=== PATIENT | male | born 1950 | race Caucasian/White ===

== ENCOUNTER 2017-12-01 15:50 | Inpatient (IN) ==
[2017-12-01 16:38] LABS: Basophils # 0.1 K/mcL (0.0-0.2); Basophils % 0.9 %; Eosinophils # 0.1 K/mcL (0.0-0.6); Eosinophils % 1.5 %; Hematocrit 40.3 % (37.5-50.1); Hemoglobin 13.3 g/dL (12.9-16.9); Immature Granulocytes % 0.6 % (0-4); Lymphocytes # 2.5 K/mcL (0.6-4.6); Lymphocytes % 30.7 %; Mean Corpuscular Volume 87.8 fL (83.0-100.0); Monocytes # 0.9 K/mcL (0.0-1.3); Monocytes % 11.1 %; Neutrophils # 4.4 K/mcL (1.6-8.9); Platelet Count 232 K/mcL (140-400); Red Blood Count 4.59 M/mcL (4.19-5.50); Red Cell Distribution Width 13.4 % (11.5-14.5); Segmented Neutrophils % 55.2 %
--- NOTE | 2017-12-01 16:44 | Emergency Department Note ---
Disposition Clinical Impression: Stroke-like symptoms Disposition: Admitted As Inpatient Condition: Fair Referrals: Boy MELGOZA [phone] [Other] [facility] - Time of Disposition: 17:22 General Adult HPI - General Chief complaint: ED Neuro Symptoms/Deficit Stated complaint: headache Time Seen by Provider: 12/01/17 15:54 Source: patient, EMS Mode of arrival: EMS Limitations: no limitations Nursing Notes Reviewed: Yes Vital Signs Reviewed: Yes - History of Present Illness HPI Narrative: 67-year-old male transferred from the [place] chief complaint of weakness and dizziness. Patient states when he woke up this morning he started noticing left sided weakness. He went to bed at around midnight last night. For the past 2 days patient has felt weak and dizzy like the room is spinning. He denies chest pain or abdominal pain. Denies any recent illnesses or fevers. He does state he has increased shortness of breath over the past 2 days as well. Patient discloses mild sensation abnormalities of the left side of the face at this time but no other neurological complaints. Pain Scale: 3 - Related Data Home Medications Medication Instructions Recorded Confirmed No Known Home Drugs 12/01/17 12/01/17 Allergies Allergy/AdvReac Type Severity Reaction Status Date / Time Poison Allie Extract Allergy See Verified 12/01/17 16:08 Comments All systems ED: reviewed and negative except as stated. Respiratory: Reports: dyspnea Neurological: Reports: weakness, vertigo Past Medical History - Past Medical History Attestation: Yes The following information was validated with the patient. Medical history: Reports: aortic aneurysm, arthritis, GERD, hyperlipidemia Psychiatric history: Reports: depression, PTSD - Social History Smoking Status: Former smoker Smokeless Tobacco Status: No Alcohol use: Reports: none Drug use: Reports: none Physical Exam - General Limitations: no limitations General appearance: alert, in no apparent distress - Head Head exam: atraumatic, normocephalic, normal inspection - Eye Eye exam: Present: normal appearance, PERRL, EOMI. Absent: scleral icterus, conjunctival injection - ENT ENT exam: normal exam, mucous membranes moist - Neck Neck exam: Present: normal inspection, full ROM. Absent: tenderness, meningismus - Chest Chest inspection: Present: normal inspection, symmetric chest wall rise. Absent : tenderness, rash - Respiratory Respiratory exam: Present: normal lung sounds bilaterally. Absent: respiratory distress, wheezes - Cardiovascular Cardiovascular exam: Present: regular rate, normal rhythm, normal heart sounds - Abdominal Exam Abdominal exam: Present: soft, Non-Tender. Absent: distention, guarding, rebound - Extremities Exam Extremities exam: Present: normal inspection, full ROM - Neurological Exam Neurological exam: Present: alert, oriented X3, CN II-XII intact, motor sensory deficit (mild left facial sensory decrease), other (patient unsteady on feet) - Psychiatric Psychiatric exam: Present: normal affect, normal mood - Skin Skin exam: Present: warm, intact Course Course Narrative: [facility] 7-year-old male presenting to the emergency department with chief complaint left-sided weakness. Patient's only complaint at this time is left sided facial sensation abnormality. All other symptoms have resolved. Patient's last known well midnight last evening. Patient is out of the window for TPA. NIH score 1. We will perform basic stroke workup including CT of the head along with laboratory analysis. We will plan to admit the patient for further evaluation. Pending results. Patient is alert and oriented 3 in the room. Hypertensive but other vital signs stable and within normal limits. Patient agrees with this plan. We will also provide the patient with meclizine at this time for his vertigo. - Reevaluation(s) Reevaluation #1: All patient's lab work and CT of the head within normal limits. Patient states he is feeling significantly better after the meclizine. We will plan to admit the patient at this time for further stroke workup. The patient is alert and oriented 3 in the room. Hypertensive other vital signs stable and within normal limits. I spoke with the hospitalist on-call Dr. Arteaga who agrees to accept the patient this time. Vital Signs Temperature 0 F L 12/01/17 15:53 Pulse Rate 65 12/01/17 15:53 Respiratory Rate 18 12/01/17 15:53 Blood Pressure 201/82 12/01/17 15:53 O2 Sat by Pulse Oximetry 98 12/01/17 15:53 Temperature 97.9 F 12/01/17 17:56 Pulse Rate 60 12/01/17 17:56 Respiratory Rate 17 12/01/17 17:56 Blood Pressure 181/93 12/01/17 17:56 O2 Sat by Pulse Oximetry 98 12/01/17 17:56 Oxygen Delivery Oxygen Delivery Room Air Medical Decision Making - Medical Records Medical records reviewed: Yes I reviewed the patient's medical records. - Lab Data Lab results reviewed: Yes I reviewed the patient's lab results. Result diagrams: 12/01/17 16:22 12/01/17 16:22 Lab Results 12/01/17 12/01/17 12/01/17 Range/Units 16:22 16:22 16:22 WBC 8.0 (4.3-11.1) K/mcL RBC 4.59 (4.19-5.50) M/mcL Hgb 13.3 (12.9-16.9) g/dL Hct 40.3 (37.5-50.1) % MCV 87.8 (83.0-100.0) fL MCH 29.0 (28.0-33.3) pg MCHC 33.0 (31.6-35.5) g/dL RDW 13.4 (11.5-14.5) % Plt Count 232 (140-400) K/mcL MPV 11.0 (9.4-12.4) fL Immature Gran % 0.6 (0-4) % Seg Neutrophils % 55.2 % Lymphocytes % 30.7 % Monocytes % 11.1 % Eosinophils % 1.5 % Basophils % 0.9 % Neutrophils # 4.4 (1.6-8.9) K/mcL Lymphocytes # 2.5 (0.6-4.6) K/mcL Monocytes # 0.9 (0.0-1.3) K/mcL Eosinophils # 0.1 (0.0-0.6) K/mcL Basophils # 0.1 (0.0-0.2) K/mcL PT 11.3 (9.4-12.1) Seconds INR 1.1 APTT 29.2 (26.0-36.0) Seconds Sodium 140 (136-145) mEq/L Potassium 4.4 (3.5-5.1) mEq/L Chloride 104 (98-107) mEq/L Carbon Dioxide 24 (23-29) mEq/L BUN 18 (8-23) mg/dL Creatinine 0.92 (0.70-1.30) mg/dL Est GFR ( Amer) > 60 (> 60) Est GFR (Non-Af Amer) > 60 (> 60) BUN/Creatinine Ratio 20 (6-26) Glucose 94 (70-105) mg/dL Calculated Osmolality 292 (280-300) Calcium 9.0 (8.6-10.3) mg/dL Troponin I < 0.03 (< 0.04) ng/mL - Radiology Data Radiology results reviewed: Yes I reviewed the patient's radiology results. Head CT 12/01/17 16:06 IMPRESSION: No acute intracranial abnormality. D/ / Jade Madison / Jade Madison Interpreting Provider: Jade Madison - EKG Data EKG #1 EKG attestation: Yes I reviewed and interpreted this EKG. EKG results narrative: Sinus rhythm. 60 bpm. IN interval 162, QRS 93, QTC 420. No signs of acute ST segment elevation or ischemia. Attestation Statement - Attestation Attestation: I examined this patient and my medical decision-making was reviewed with the Resident Physician. I agree with the documented findings, disposition and treatment plan as described except to the extent set forth below. Patient presents to the ED with a chief complaint of weakness and dizziness. Onset a couple of days ago. He states when he woke up this morning he felt weak on his left side as well. He was fine when he went to bed at midnight. Symptoms were present upon awakening at 9 AM. On examination he is in no acute distress. He does have difficulty in relating from the cot to the ER bed. His NIH is 1 for sensory discrepancy on his face. Plan. Stroke workup has been unremarkable. He would not be a TPA candidate secondary to 1 his low NIH and 2 onset of symptoms greater than 12 hours. Patient admitted to medicine for further workup. 30 minutes of critical care exclusive of separately billable procedures. NIH Stroke Scale - Level of Consciousness LOC: Alert - LOC Questions LOC Questions: Answers both correctly - LOC Commands LOC Commands: Performs both correctly - Best Gaze Best Gaze: Normal - Visual Visual: No visual loss - Facial Palsy Facial Palsy: Normal - Motor Arms Motor Arm-Left: No drift for 10 seconds Motor Arm-Right: No drift for 10 seconds - Motor Legs Motor Leg-Left: No drift for 5 seconds Motor Leg-Right: No drift for 5 seconds - Limb Ataxia Limb Ataxia: Absent of affected limb too weak to perform exam - Sensory Sensory: Mild to moderate loss, "not as sharp" - Best Language Best Language: No aphasia - Dysarthria Dysarthria: Normal - Extinction and Inattention Extinction and Inattention: Normal - NIHSS Total Score NIHSS Total Score: 1
[2017-12-01 16:45] LABS: INR 1.1; Prothrombin Time 11.3 Seconds (9.4-12.1)
[2017-12-01 16:48] LABS: Activated Partial Thrombo Time 29.2 Seconds (26.0-36.0)
[2017-12-01 16:59] LABS: BUN/Creatinine Ratio 20 (6-26); Blood Urea Nitrogen 18 mg/dL (8-23); Carbon Dioxide 24 mEq/L (23-29); Chloride 104 mEq/L (98-107); Glucose 94 mg/dL (70-105); Osmolality,Calculated 292 (280-300); Potassium 4.4 mEq/L (3.5-5.1); Sodium 140 mEq/L (136-145); Troponin I < 0.03 ng/mL (< 0.04); eGFR For African Americans > 60 (> 60); eGFR For Non-African Americans > 60 (> 60)
[2017-12-01] MEDS ORDERED: Aspirin 81 MG TAB.CHEW PO ONE (17:01)
[2017-12-01] MEDS ORDERED: Acetaminophen 325 MG TABLET PO PRN (20:03)
[2017-12-01] MEDS ORDERED: Naloxone 0.4 MG/ML INJ IVP PRN (20:03)
--- NOTE | 2017-12-01 20:07 | Internal Med History&Physical ---
Date of Encounter: 12/01/17 Time of Encounter: 20:07 Assessment and Plan (1) Dizziness Current visit: Yes Status: Acute To rule out posterior circulation stroke. Continue telemetry monitoring, trend troponins. CT head in the emergency room showed no acute stroke/bleed. Will get MRI brain and complete stroke workup with bilateral carotid Doppler, transthoracic echocardiogram. Monitor vital signs, frequent neuro checks. Physical and occupational therapy evaluation. (2) Morbid obesity Current visit: Yes Status: Chronic (3) Essential hypertension Current visit: Yes Status: Chronic Patient likely has undiagnosed hypertension. Blood pressure noted to be uncontrolled since presentation. Start oral lisinopril, will use when necessary IV hydralazine for appropriate blood pressure control. Internal Medicine - H&P: HPI Chief complaint: Dizziness Admitted From: Emergency Dept Plans for Post Hospital Care: Home History of present illness: Mr. Huang is a 67 year old male with no known medical history, who presents with complaints of sudden new onset of dizziness since waking up this morning. Last known well last night. He reports significant dizziness, gait instability and disequilibrium, kept bumping into furniture at home. No syncope or fall. He also reports pressure-like sensation in the frontal head. No associated paresthesias, facial droop, dysphagia. He reports that he previously had left- sided facial numbness and weakness, possible slurred speech, all of which have resolved at this time. He does not take any medications at home. His blood pressure was noted to be very high in the emergency room. Past Med Surg Social Fam HX - Past Medical History Medical history: aortic aneurysm, arthritis, GERD, hyperlipidemia Psychiatric history: depression, PTSD - Past Surgical History Surgical History: appendectomy - Social History Smoking Status: Former smoker Smokeless Tobacco Status: No Alcohol use: none Drug use: none Occupational status: retired Current living situation: Home - Independent Activity Level: Independent ambulation Recent Out of Country Travel Within the Last 8 Weeks: No Exposure or Possible Exposure to Illness During Travel: No - Family History Mother Hx Family Cancer: Yes (Cervical cancer) Internal Medicine - H&P: Meds No Known Home Drugs 12/01/17 [History] 3 Allergy/AdvReac Type Severity Reaction Status Date / Time Poison Allie Extract Allergy See Verified 12/01/17 16:08 Comments All Systems PM: A 10-system review of systems was performed and is negative for pertinent findings except as documented above in the HPI. - Constitutional Constitutional: weakness, no chills, no fever(s), no night sweats - EENT Eyes: no change in vision, no discharge, no pain, no photophobia Ears: no ear discharge, no ear pain, no tinnitus Nose, mouth and throat: no dysphagia, no nasal discharge, no neck pain, no sore throat - Cardiovascular Cardiovascular ROS IM: lightheadedness - Respiratory Respiratory: no cough, no dyspnea, no wheezing, no excessive phlegm production - Gastrointestinal Gastrointestinal: no abdominal pain, no diarrhea, no hematemesis, no hematochezia, no melena, no nausea, no vomiting - Musculoskeletal Musculoskeletal ROS IM: no numbness, no tingling - Integumentary Integumentary IM: no rash, no unusual bruising - Neurological Neurological ROS: abnormal gait, disequilibrium, dizziness - Hematologic/Lymphatic Hematologic/Lymphatic: no easy bruising - Constitutional Vitals: Temp Pulse Resp BP Pulse Ox 97.5 F L 58 16 150/66 97 12/01/17 19:45 12/01/17 19:45 12/01/17 19:45 12/01/17 19:45 12/01/17 19:45 General appearance: Present: A&O X 3, morbidly obese, answers questions appropriately - Respiratory Respiratory exam: Present: CTAB. Absent: accessory muscle use, rales, rhonchi, wheezes - Cardiovascular Cardiovascular exam: Present: RRR, +S1, +S2. Absent: diastolic murmur, gallop, rubs, systolic murmur - GI/Abdominal GI/Abdominal exam: Present: normal bowel sounds, soft (Obese), no peritoneal signs. Absent: distended, tenderness - Extremities Exam Extremities exam: Present: full ROM, pedal edema, warm, radial pulses palpable and symmetrical. Absent: calf tenderness, cyanotic - Neurological Exam Neurological exam: Present: CN II-XII intact, oriented X3 (Dizziness on sitting up), no focal deficits. Absent: pronater drift, facial droop, speech deficit Internal Med - H&P Results - Labs CBC & Chem 7: 12/01/17 16:22 12/01/17 16:22
[2017-12-02 05:00] LABS: Basophils # 0.1 K/mcL (0.0-0.2); Basophils % 1.1 %; Eosinophils # 0.2 K/mcL (0.0-0.6); Eosinophils % 2.1 %; Hematocrit 40.1 % (37.5-50.1); Hemoglobin 13.3 g/dL (12.9-16.9); Immature Granulocytes % 0.4 % (0-4); Lymphocytes # 2.6 K/mcL (0.6-4.6); Lymphocytes % 35.3 %; Mean Corpuscular HGB Conc 33.2 g/dL (31.6-35.5); Mean Corpuscular Hemoglobin 28.8 pg (28.0-33.3); Mean Corpuscular Volume 86.8 fL (83.0-100.0); Mean Platelet Volume 11.4 fL (9.4-12.4); Monocytes # 0.8 K/mcL (0.0-1.3); Monocytes % 10.3 %; Neutrophils # 3.8 K/mcL (1.6-8.9); Platelet Count 226 K/mcL (140-400); Red Blood Count 4.62 M/mcL (4.19-5.50); Red Cell Distribution Width 13.4 % (11.5-14.5); Segmented Neutrophils % 50.8 %
[2017-12-02 05:11] LABS: BUN/Creatinine Ratio 20 (6-26); Blood Urea Nitrogen 17 mg/dL (8-23); Calcium 9.1 mg/dL (8.6-10.3); Carbon Dioxide 25 mEq/L (23-29); Chloride 106 mEq/L (98-107); Chol/HDL Ratio 4.9 (0-4.9); Cholesterol 173 mg/dL (< 200); Glucose 88 mg/dL (70-105); HDL Cholesterol 35 mg/dL (40-59); LDL Cholesterol,Calculated 118 mg/dL (0-99); Osmolality,Calculated 285 (280-300); Sodium 137 mEq/L (136-145); Triglycerides 102 mg/dL (< 150); eGFR For African Americans > 60 (> 60); eGFR For Non-African Americans > 60 (> 60)
[2017-12-02] MEDS: *HR* Enoxaparin 40 MG/0.4 ML SYRINGE SQ SCH (06:28)
--- NOTE | 2017-12-02 11:08 | Internal Med Progress Note ---
Date of Encounter: 12/02/17 Time of Encounter: 11:06 - Assessment and plan (1) Dizziness Current Visit: Yes Status: Acute Assessment and plan: 1 rule out posterior circulation stroke. We will continue telemetry monitoring and treatment troponins. CT of head no acute strokes last bleed MRI of brain no evidence of acute infarct or intracranial mass small cortical infarct noted in the left parietal lobe near the vertex which is chronic Awaiting bilateral carotid Dopplers and echocardiogram Fall precautions Neurochecks PT OT evaluation (2) Essential hypertension Current Visit: Yes Status: Chronic Assessment and plan: Suspect that he has undiagnosed hypertension. Upon presentation his blood pressure was very elevated with systolic 119 diastolic 100. He has been initiated on lisinopril. Hydralazine as needed for systolic greater than 180 (3) Morbid obesity Current Visit: Yes Status: Chronic Assessment and plan: 1 encourage patient to lose weight-heart healthy diet (4) DVT prophylaxis Current Visit: Yes Status: Acute Assessment and plan: Lovenox - Time Spent With Patient less than 15 minutes - Subjective Interval history: Patient seen and examined at bedside, Presently denies any numbness or tingling dizziness or HORNER. He feels he has return to baseline. No CP or palpitations. I reviewed tx plan and patient verbalized understanding - Constitutional Vitals: Temp Pulse Resp BP Pulse Ox 97.6 F 57 15 144/81 96 12/02/17 10:10 12/02/17 10:10 12/02/17 10:10 12/02/17 10:10 12/02/17 10:10 General appearance: Present: A&O X 3, morbidly obese, answers questions appropriately - Head Head exam: Present: atraumatic, normocephalic - Eye Eye exam: Present: PERRL, conjuntiva pink, sclera anicteric Pupils: Present: PERRL - Neck Neck exam general surgery: Present: supple, trachea midline. Absent: lymphadenopathy - Respiratory Respiratory exam: Present: CTAB. Absent: accessory muscle use, rales, rhonchi, wheezes - Cardiovascular Cardiovascular exam: Present: RRR, +S1, +S2. Absent: diastolic murmur, gallop, rubs, systolic murmur - GI/Abdominal GI/Abdominal exam: Present: normal bowel sounds, soft, no peritoneal signs. Absent: distended, tenderness - Extremities Exam Extremities exam: Present: warm, radial pulses palpable and symmetrical. Absent : calf tenderness, cyanotic, pedal edema - Neurological Exam Neurological exam: Present: CN II-XII intact, oriented X3, no focal deficits, strengths equal and symetr throughout. Absent: pronater drift, facial droop, speech deficit - Expanded Neurological Exam Patient oriented to: Present: person, place, time Speech: Present: fluid speech Cranial Nerves: EOM's intact PM: Normal, gag reflex PM: Normal, nystagmus PM: Normal, tongue deviation PM: Normal Cerebellar function: finger to nose: Normal, heel to griajlva: Normal, Romberg: Normal Neuro motor strength exam: LUE: 5, RUE: 5, LLE: 5, RLE: 5 Coma Scale Eye Opening: Spontaneous Coma Scale Motor Response: Obeys Commands Coma Scale Verbal Response: Oriented Coma Scale Total: 15 - Skin Skin exam: Present: dry, intact Internal Medicine: Result - Labs CBC & Chem 7: 12/02/17 03:19 12/02/17 03:19 Labs: Short CBC 12/02/17 Range/Units 03:19 WBC 7.5 (4.3-11.1) K/mcL Hgb 13.3 (12.9-16.9) g/dL Hct 40.1 (37.5-50.1) % Plt Count 226 (140-400) K/mcL Neutrophils # 3.8 (1.6-8.9) K/mcL BMP 12/02/17 03:19 Sodium 137 Potassium 4.0 Chloride 106 Carbon Dioxide 25 BUN 17 Creatinine 0.86 Glucose 88 Calcium 9.1 Cardiac Enzymes 12/01/17 12/02/17 12/02/17 Range/Units 20:26 03:19 10:02 Troponin I < 0.03 < 0.03 < 0.03 (< 0.04) ng/mL - ABG Interpretation ABG results: PT/INR, D-dimer PT 11.3 Seconds (9.4-12.1) 12/01/17 16:22 - Impressions Impressions Brain MRI 12/02/17 20:05 IMPRESSION: 1. No evidence of an acute infarct or intracranial mass. 2. Mild - moderate chronic microvascular white matter ischemic disease is noted supratentorially. 3. 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 D/ / 12/02/2017 10:32:43 Reed Dhillon MD / Maryana Lawson Interpreting Provider: Reed Dhillon MD Consult Discharge Plan - Plan Referrals: Boy MELGOZA [phone] [Other] [facility] [[facility] Care Provider[facility] -
[2017-12-02] MEDS ORDERED: Perflutren Lipid Microsphere 1.3 ML in 0.9 % Sodium Chloride 8.7 ML IVP ONE (14:42)
[2017-12-03 05:56] LABS: Basophils # 0.1 K/mcL (0.0-0.2); Basophils % 0.9 %; Eosinophils # 0.1 K/mcL (0.0-0.6); Eosinophils % 1.4 %; Hematocrit 40.9 % (37.5-50.1); Hemoglobin 13.3 g/dL (12.9-16.9); Immature Granulocytes % 0.5 % (0-4); Lymphocytes # 2.5 K/mcL (0.6-4.6); Lymphocytes % 28.9 %; Mean Corpuscular HGB Conc 32.5 g/dL (31.6-35.5); Mean Corpuscular Hemoglobin 28.5 pg (28.0-33.3); Mean Corpuscular Volume 87.8 fL (83.0-100.0); Mean Platelet Volume 11.3 fL (9.4-12.4); Monocytes # 0.8 K/mcL (0.0-1.3); Monocytes % 9.5 %; Platelet Count 232 K/mcL (140-400); Red Blood Count 4.66 M/mcL (4.19-5.50); Red Cell Distribution Width 13.3 % (11.5-14.5); Segmented Neutrophils % 58.8 %
[2017-12-03 06:24] LABS: BUN/Creatinine Ratio 19 (6-26); Blood Urea Nitrogen 18 mg/dL (8-23); Calcium 9.1 mg/dL (8.6-10.3); Carbon Dioxide 24 mEq/L (23-29); Chloride 105 mEq/L (98-107); Glucose 95 mg/dL (70-105); Osmolality,Calculated 282 (280-300); Potassium 3.9 mEq/L (3.5-5.1); Sodium 135 mEq/L (136-145); eGFR For African Americans > 60 (> 60); eGFR For Non-African Americans > 60 (> 60)
[2017-12-03] MEDS: *HR* Enoxaparin 40 MG/0.4 ML SYRINGE SQ SCH (06:40)
--- NOTE | 2017-12-03 09:50 | Internal Med Progress Note ---
Date of Encounter: 12/03/17 Time of Encounter: 09:48 - Assessment and plan (1) Dizziness Current Visit: Yes Status: Acute Assessment and plan: 1 rule out posterior circulation stroke. We will continue telemetry monitoring and treatment troponins. CT of head no acute strokes last bleed MRI of brain no evidence of acute infarct or intracranial mass small cortical infarct noted in the left parietal lobe near the vertex which is chronic Awaiting bilateral carotid Dopplers and echocardiogram Fall precautions Neurochecks PT OT evaluation (2) Essential hypertension Current Visit: Yes Status: Chronic Assessment and plan: Suspect that he has undiagnosed hypertension. Upon presentation his blood pressure was very elevated with systolic 119 diastolic 100. He has been initiated on lisinopril. Hydralazine as needed for systolic greater than 180 (3) Morbid obesity Current Visit: Yes Status: Chronic Assessment and plan: 1 encourage patient to lose weight-heart healthy diet (4) DVT prophylaxis Current Visit: Yes Status: Acute Assessment and plan: Lovenox - Subjective Interval history: Patient seen and examined at bedside, Presently he has a headache and numbness in feet. He did have significantly elevated BP over night. No CP or palpitations. I reviewed tx plan and patient verbalized understanding - Constitutional Vitals: Temp Pulse Resp BP Pulse Ox 98 F 64 16 134/84 95 12/03/17 07:55 12/03/17 07:55 12/03/17 07:55 12/03/17 07:55 12/03/17 07:55 General appearance: Present: A&O X 3, morbidly obese, answers questions appropriately - Head Head exam: Present: atraumatic, normocephalic - Eye Eye exam: Present: PERRL, conjuntiva pink, sclera anicteric Pupils: Present: PERRL - Neck Neck exam general surgery: Present: supple, trachea midline. Absent: lymphadenopathy - Respiratory Respiratory exam: Present: CTAB. Absent: accessory muscle use, rales, rhonchi, wheezes - Cardiovascular Cardiovascular exam: Present: RRR, +S1, +S2. Absent: diastolic murmur, gallop, rubs, systolic murmur - GI/Abdominal GI/Abdominal exam: Present: normal bowel sounds, soft, no peritoneal signs. Absent: distended, tenderness - Extremities Exam Extremities exam: Present: warm, radial pulses palpable and symmetrical. Absent : calf tenderness, cyanotic, pedal edema - Neurological Exam Neurological exam: Present: CN II-XII intact, oriented X3, no focal deficits. Absent: pronater drift, facial droop, speech deficit - Skin Skin exam: Present: dry, intact Internal Medicine: Result - Labs CBC & Chem 7: 12/03/17 05:01 12/03/17 05:01 Labs: Short CBC 12/03/17 Range/Units 05:01 WBC 8.6 (4.3-11.1) K/mcL Hgb 13.3 (12.9-16.9) g/dL Hct 40.9 (37.5-50.1) % Plt Count 232 (140-400) K/mcL Neutrophils # 5.0 (1.6-8.9) K/mcL BMP 12/03/17 05:01 Sodium 135 L Potassium 3.9 Chloride 105 Carbon Dioxide 24 BUN 18 Creatinine 0.94 Glucose 95 Calcium 9.1 - ABG Interpretation ABG results: PT/INR, D-dimer PT 11.3 Seconds (9.4-12.1) 12/01/17 16:22 - Impressions Impressions Brain MRI 12/02/17 20:05 IMPRESSION: 1. No evidence of an acute infarct or intracranial mass. 2. Mild - moderate chronic microvascular white matter ischemic disease is noted supratentorially. 3. 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 D/ / 12/02/2017 10:32:43 Reed Dhillon MD / Maryana Lawson Interpreting Provider: Reed Dhillon MD Consult Discharge Plan - Plan Referrals: Boy SNYDERE RHONA [phone] [Other] [facility] [[facility] Care Provider[facility] -
[2017-12-03 11:14] VITALS: BP 116/69
--- NOTE | 2017-12-03 11:34 | Discharge Summary ---
- NOTES TO OUTPATIENT PROVIDER Notes to Outpatient Provider: will need to check chem 7 as out patient Started on lisinopril Date of Encounter: 12/03/17 Time of Encounter: 11:32 - Discharge Diagnosis (1) Dizziness Priority: Primary Status: Acute Comments: 1 patient initially presented with sudden onset of dizziness as well as gait instability. 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 Carotid Doppler nonstenotic plaque bilateral bifurcations and proximal ICA-he is back to baseline now no difficulty ambulating neurologically he is intact no focal deficits cranial nerves II through XII are intact he did have an elevated blood pressure on presentation suspect he has underlying hypertension that has not been diagnosed. He was initiated on lisinopril which we will continue home. He did have an elevated blood pressure overnight we will increase lisinopril to 10 mg and have patient follow-up with PCP in a couple days (2) Essential hypertension Priority: Secondary Status: Chronic Comments: Continue with lisinopril we will increase this to 10 mg have patient follow up with primary care and a couple days (3) Morbid obesity Priority: Secondary Status: Chronic Comments: Encouraged patient to lose weight Hospital course: Mr. Huang is a 67 year old male with no past medical history-presented with sudden onset of dizziness with gait instability. No syncope or fall as well as a frontal headache. He does complain of bottom of his feet being numb and he had previously had some left sided facial numbness and weakness however it resolved. CT of head was negative for any acute stroke/bleed MRI was negative for any acute infarct or intracranial mass, chronic small cortical infarct noted in the left parietal lobe near the vertex. Carotid Dopplers with nonstenotic plaque bilateral bifurcations and proximal ICA. He did present with elevated blood pressure suspect he had underlying undiagnosed hypertension he was initiated on lisinopril. He did have elevated blood pressures through the night we will increase his lisinopril today. His symptoms are resolved he feels he is back to his neurological baseline he is ambulating in the room without difficulty. There are no focal deficits cranial nerves II through XII are intact. I explained to the patient would increase his lisinopril and that he would follow-up with his PCP he is with the [facility] in 2 days since this provider knows him best and can adjust medications accordingly. Advised to have lab work drawn as outpatient through the [facility] to monitor electrolytes and renal function. Patient verbalized understanding. Bubba patient is hemodynamically stable and he is ready for discharge - Time Spent with Patient Total time spent providing and/or coordinating discharge services: - Discharge Medications Prescriptions: Lisinopril [Zestril] 10 mg PO DAILY #60 tablet Home Medications: Lisinopril [Zestril] 10 mg PO DAILY #60 tablet 12/03/17 [Rx] Allergies/Adverse Reactions: 3 Allergy/AdvReac Type Severity Reaction Status Date / Time Poison Allie Extract Allergy See Verified 12/01/17 16:08 Comments Date of admission: 12/02/17 15:39 Primary care physician: [facility] Discharging clinician: Tanya Keller Anticipated date of discharge: 12/03/17 - Constitutional Vitals: Temp Pulse Resp BP Pulse Ox 98.1 F 80 16 116/69 95 12/03/17 11:13 12/03/17 11:13 12/03/17 11:13 12/03/17 11:13 12/03/17 11:13 General appearance: Present: A&O X 3, morbidly obese, answers questions appropriately - Head Head exam: Present: atraumatic, normocephalic - Eye Eye exam: Present: PERRL, conjuntiva pink, sclera anicteric Pupils: Present: PERRL - Neck Neck exam general surgery: Present: supple, trachea midline. Absent: lymphadenopathy - Respiratory Respiratory exam: Present: CTAB. Absent: accessory muscle use, rales, rhonchi, wheezes - Cardiovascular Cardiovascular exam: Present: RRR, +S1, +S2. Absent: diastolic murmur, gallop, rubs, systolic murmur - GI/Abdominal GI/Abdominal exam: Present: normal bowel sounds, soft, no peritoneal signs. Absent: distended, tenderness - Extremities Exam Extremities exam: Present: warm, radial pulses palpable and symmetrical. Absent : calf tenderness, cyanotic, pedal edema - Neurological Exam Neurological exam: Present: CN II-XII intact, oriented X3, no focal deficits. Absent: pronater drift, facial droop, speech deficit - Skin Skin exam: Present: dry, intact - Patient Status Disposition: Home, Self-Care Condition: Fair Functional capacity at discharge: independent ambulation Overall status at discharge: patient is back to baseline - Discharge Instructions Instructions: Chronic Hypertension (DC) Follow Up With: Boy MELGOZA [phone] [Other] [facility] [Primary Care Provider] - - Diet and Activity Activity: increase activity as tolerated Diet: low salt diet
--- NOTE | 2017-12-05 22:58 | Electrocardiograph Report ---
[place] [id number] Test Date: 2017-12-01 Pat Name: Jamar Huang Department: 102 Room: 24 Gender: M Doper: Archie : 1950 Requested By: Violette Boykin Order Number: [id number] Reading MD: Hans Alcantara DO Measurements Intervals [place] Rate: 60 P: 58 WY: 162 QRS: 11 QRSD: 93 T: 49 QT: 420 QTc: 420 Interpretive Statements SINUS RHYTHM Electronically Signed On 12-05-2017 22:56:11 EDT by Hans Alcantara DO
== END 2017-12-03 15:05 | disposition home or self-care (01) | DRG 149 ==
LOC: EMEROO 15:50 → 3BNU 15:50
PROVIDERS: ADMIT Nurse Practitioner Acute Care; ATTEND Registered Nurse